=== PATIENT | female | born 1975 | race Caucasian/White ===

== ENCOUNTER → 2017-11-29 | Outpatient (CLI) | payer OTHER ==
[~2017-11-29] MED LIST: ALPR1TAB2 PO; CTLP20T; FLUO20CA42 PO; HYDR-3063 PO; IBUP-1780 PO; MTC10T; NORT50CA PO; OMEP20CA12 PO; ORPH100T PO; PRD20T PO; PRILOSEC OTC
--- NOTE | 2017-11-29 13:54 | Diagnostic Imaging Report ---
PROCEDURE: US Thyroid. TECHNIQUE: Multiple real-time grayscale images were obtained of the thyroid in various projections. INDICATION: Enlarged thyroid. COMPARISON: There are no prior studies available for comparison. FINDINGS: The thyroid gland is not enlarged. The right lobe measures 4.6 x 1.3 x 1.7 cm while the left lobe is estimated to be 4.5 x 1.3 x 1.7 cm (normal gland size 4-5 x 2 x 2 cm or less). Each lobe of the thyroid has a fairly homogeneous texture. There is no discrete solid or cystic mass identified. IMPRESSION: 1. The thyroid gland is not enlarged, and there is no focal solid or cystic mass involving either lobe. 2. If clinical concern regarding an underlying abnormality of the thyroid persists and further imaging is desired, then a nuclear medicine thyroid scan would be recommended. Dictated by: Dictated on workstation # [id number]
== END ==
LOC: RAD 11:01
PROVIDERS: ATTEND Family Medicine
DX: E04.9 Nontoxic goiter, unspecified (principal)
CPT/HCPCS: 76536

== ENCOUNTER → 2018-02-09 | Outpatient (CLI) | payer OTHER ==
--- NOTE | 2018-02-09 09:31 | Diagnostic Imaging Report ---
PROCEDURE: MR imaging cervical spine without contrast. TECHNIQUE: Multiplanar, multisequence MR imaging of the cervical spine was performed without contrast. INDICATION: Chronic neck pain and right shoulder pain radiating to the clavicle. COMPARISON: No prior studies are available for comparison. FINDINGS: Curvature of the cervical spine is within normal limits. Minimal anterolisthesis of C4 on C5 is seen. Minimal retrolisthesis of C5 on C6 is noted. Vertebral body marrow signal intensity is unremarkable. No geographic marrow lesion is seen. There is multilevel degenerative disc disease, greatest at C5-C6 and C6-C7 levels, with disc space narrowing and desiccation. Cervical cord demonstrates normal homogeneous signal intensity and normal morphology. C2-C3: No central canal or neuroforaminal stenosis is identified. C3-C4: Unremarkable. C4-C5: Unremarkable. C5-C6: There is broad-based disc/osteophyte complex and slight midline disc bulge indenting the ventral thecal sac. However, no resultant central canal or neuroforaminal stenosis is identified. C6-C7: Endplate osteophytes and uncovertebral joint degenerative changes noted. No central canal stenosis is seen. No significant neuroforaminal stenosis is seen. C7-T1: Unremarkable. Paraspinous tissues are unremarkable. IMPRESSION: Lower cervical spondylosis, as described, greatest at C5-C6 and C6-C7 levels. However, no significant central canal or neuroforaminal stenosis is identified. Dictated by: Dictated on workstation # [id number]
== END ==
LOC: RAD 08:27
PROVIDERS: ATTEND Family Medicine
DX: M50.322 Other cervical disc degeneration at C5-C6 level (principal); M47.812 Spondylosis without myelopathy or radiculopathy, cervical region
CPT/HCPCS: 72141

== ENCOUNTER → 2018-04-04 | Outpatient (CLI) | payer OTHER ==
--- NOTE | 2018-04-04 12:57 | Diagnostic Imaging Report ---
PROCEDURE: MR imaging of the brain without contrast. TECHNIQUE: Multiplanar, multisequence MR imaging of the brain was performed without contrast. INDICATION: Seizure disorder with confusion and disorientation. FINDINGS: Ventricles and sulci are within normal limits for size. Cervantes and white matter signal intensities are unremarkable. There is no evidence of cortical thickening or heterotopia. No intracranial hemorrhage is identified. There is no restricted diffusion to indicate infarction. The visualized paranasal sinuses are clear; however, fluid is present within the right mastoid air cells. IMPRESSION: Unremarkable MRI of the brain. Note is made of fluid within right mastoid air cells, and clinical correlation would be useful. Dictated by: Dictated on workstation # [id number]
== END ==
LOC: RAD 11:37
PROVIDERS: ATTEND Family Medicine
DX: R56.9 Unspecified convulsions (principal); R41.0 Disorientation, unspecified
CPT/HCPCS: 70551

== ENCOUNTER 2019-12-22 08:00 | Outpatient (RCR) | payer OTHER ==
[2019-12-20 10:23] VITALS: BP 109/77
[2019-12-20 11:14] LABS: BILIRUBIN,URINE NEGATIVE (NEGATIVE); CLARITY,URINE CLEAR; COLOR,URINE YELLOW; GLUCOSE, URINE (UA) NEGATIVE (NEGATIVE); KETONES,URINE NEGATIVE (NEGATIVE); LEUKOCYTE ESTERASE ,URINE NEGATIVE (NEGATIVE); NITRITE,URINE NEGATIVE (NEGATIVE); PH,URINE 5.5 (5-9); PROTEIN,URINE NEGATIVE (NEGATIVE)
[2019-12-20 11:21] LABS: BACTERIA,URINE NEGATIVE /HPF
[2019-12-20 11:22] LABS: BASOPHILS % (AUTO) 0 % (0-10); EOSINOPHILS % (AUTO) 0 % (0-10); HEMATOCRIT 36 % (35-52); HEMOGLOBIN 11.4 G/DL (11.5-16.0); LYMPHOCYTES # (AUTO) 1.2 X 10^3 (1.0-4.0); LYMPHOCYTES % (AUTO) 18 % (12-44); MEAN CORPUSCULAR HEMOGLOBIN 26 PG (25-34); MEAN CORPUSCULAR HGB CONC 32 G/DL (32-36); MEAN CORPUSCULAR VOLUME 84 FL (80-99); MEAN PLATELET VOLUME 8.2 FL (7.4-10.4); MONOCYTES # (AUTO) 0.5 X 10^3 (0.0-1.0); MONOCYTES % (AUTO) 8 % (0-12); NEUTROPHILS # (AUTO) 4.9 X 10^3 (1.8-7.8); NEUTROPHILS % (AUTO) 73 % (42-75); PLATELET COUNT 302 10^3/uL (130-400); RED CELL DISTRIBUTION WIDTH 21.4 % (10.0-14.5); WHITE BLOOD COUNT 6.6 10^3/uL (4.3-11.0)
[~2019-12-22] VITALS: Ht 170 cm; Wt 71.9 kg
[~2019-12-22 08:00] MED LIST changes: +ALPR1TAB7 PO; +CNC1KV IM; +FERR-84 PO; +FLUT15.845 NS; +FOLI0.8T PO; +GABA-486 PO; +HYDR-4342 PO; +LEVE500T99 PO; +LISI2.5T PO; +NORT75CA PO; -OMEP20CA12 PO; +OMEP20CA18 PO; +PANT40TA2 PO; +PROM25TA14 PO; +SCOP1PAT11 TD
== END 2019-12-22 14:22 | disposition home or self-care (01) ==
LOC: PREOP 08:00
PROVIDERS: ATTEND Obstetrics & Gynecology
DX: Z01.818 Encounter for other preprocedural examination (principal); Z01.812 Encounter for preprocedural laboratory examination; N92.0 Excessive and frequent menstruation with regular cycle; D64.9 Anemia, unspecified; K66.0 Peritoneal adhesions (postprocedural) (postinfection); Z11.59 Encounter for screening for other viral diseases; Z11.2 Encounter for screening for other bacterial diseases
CPT/HCPCS: 36415; 81000; 85025; 86850; 86900; 86901; 87081; 87635

== ENCOUNTER 2019-12-26 07:30 | Day surgery (SDC) | payer OTHER ==
[2019-12-26] VITALS (14 sets, daily range): BP systolic 119–148; BP diastolic 77–97
[~2019-12-26] VITALS: Ht 170 cm; Wt 71.9 kg
--- OUTSIDE RECORDS SUMMARY | 2019-12-26 07:37 | XMS REPORT | Continuity of Care Document ---
Demographics Preferred Language Unknown Marital Status Unknown Roman Catholic Affiliation Unknown Race Unknown Ethnic Group Unknown Author Organization Unknown Address Unknown Phone Unavailable Allergies Active Description Code Type Severity Reaction Onset Reported/Identified Relationship to Patient Clinical Status Yes NO KNOWN DRUG ALLERGIES UNKNOWN NO KNOWN DRUG ALLERG Yes NO KNOWN DRUG ALLERGIES UNKNOWN UNKNOWN Yes TAPE ADHESIVES MILD MILD Yes NKANo Known Allergies NKA Miscellaneous Allergy Unknown N/A 03/16/2006 Yes No Known Drug Allergies [id number] Drug Allergy Unknown N/A 12/20/2019 Medications Medication Packaging Start Date St op Date Route Dosage Sig FAMOTIDINE VIAL INJ 20 MG/2CC (PEPCID VIAL ) MG 01/02/2017 01/02/2017 ONCE&1929 ONDANSETRON VIAL INJ 4 MG/2CC (ZOFRAN 2CC VIAL) MG 01/02/2017 01/02/2017 PRN ONCE FENTANYL INJ 100 MCG/2CC VIAL MCG 01/02/2017 01/02/2017 ONCE&1929 LACTATED RINGERS 1000CC IV BAG INJ ml 01/02/2017 01/02/2017 ONCE&1929 FENTANYL INJ 100 MCG/2CC VIAL MCG 01/02/2017 01/02/2017 ONCE&2045 KETOROLAC VIAL INJ 30 MG/CC (TORADOL VIAL) MG 01/03/2017 01/03/2017 PRN ONCE FENTANYL INJ 100 MCG/2CC VIAL MCG 01/03/2017 01/03/2017 ONCE&0442 PROMETHAZINE VIAL INJ 25 MG/CC (PHENERGAN VIAL) MG 01/03/2017 01/03/2017 PRN ONCE DIPHENHYDRAMINE VIAL INJ 50 MG/CC (BENADRYL VIAL) MG 01/03/2017 01/03/2017 PRN ONCE NORMAL SALINE 500CC IV BAG I NJ 0.9 % (NS 500CC IV BAG) ml 01/03/2017 01/03/2017 ONCE&0447 NORMAL SALINE 1000CC IV BAG INJ 0.9 % (NS 1000CC IV BAG) ml 01/06/2017 01/06/2017 ONCE&1300 PROMETHAZINE VIAL INJ 25 MG/CC (PHENERGAN VIAL) MG 01/06/2017 01/06/2017 PRN ONCE NORMAL SALINE 1000CC IV BAG INJ 0.9 % (NS 1000CC IV BAG) ml 01/06/2017 01/06/2017 ONCE&1355 GI COCKTAIL SINGLE DOSE LIQ (GRASSHOPPER) ML 01/06/2017 01/06/2017 ONCE&1510 PROCHLORPERAZINE VIAL INJ 10 MG/2CC (COMPAZINE VIAL) MG 01/06/2017 01/06/2017 ONCE&1516 PROMETHAZINE VIAL INJ 25 MG/CC (PHENERGAN VIAL) MG 01/06/2017 01/06/2017 ONCE&1554 SCOPOLAMINE PATCH PAT 1.5 MG (TRANSDERM SC OP) MG 01/06/2017 01/06/2017 ONCE&1630 ONDANSETRON VIAL INJ 4 MG/2CC (ZOFRAN 2CC VIAL) MG 08/28/2018 08/28/2018 PRN ONCE NORMAL SALINE 1000CC IV BAG INJ 0.9 % (NS 1000CC IV BAG) ml 08/28/2018 08/28/2018 ONCE&1646 LORAZEPAM 1CC VIAL INJ 2 MG/CC (ATIVAN VIA L) MG 08/28/2018 08/28/2018 ONCE&1658 Hydromorphone inj 2mg/cc vial (Dilaudid) MG 08/28/2018 08/28/2018 PRN ONCE KETOROLAC VIAL INJ 30 MG/CC (TORADOL VIAL) MG 10/15/2018 10/15/2018 ONCE&1057 PROCHLORPERAZINE VIAL INJ 10 MG/2CC (COMPAZINE VIAL) MG 10/15/2018 10/15/2018 PRN ONCE NORMAL SALINE 1000CC IV BAG INJ 0.9 % (NS 1000CC IV BAG) ml 10/15/2018 10/15/2018 ONCE&1057 LORAZEPAM 1CC VIAL INJ 2 MG/CC (ATIVAN VIA L) MG 10/15/2018 10/15/2018 PRN ONCE HYDROCODONE/APAP 5MG/325MG T AB 5 MG/325MG (HERMINIA-TAB 5/325) TAB 10/15/2018 10/15/2018 PRN ONCE SUCRALFATE TAB 1 GM (CARAFATE) GM 10/15/2018 10/15/2018 ONCE&1221 GI COCKTAIL SINGLE DOSE LIQ (GRASSHOPPER) ML 10/15/2018 10/15/2018 ONCE&1221 ORPHENADRINE INJ 60 MG/2CC (NORFLEX) MG 10/15/2018 10/15/2018 ONCE&1335 LORAZEPAM 1CC VIAL INJ 2 MG/CC (ATIVAN VIA L) MG 10/15/2018 10/15/2018 PRN ONCE LORAZEPAM 1CC VIAL INJ 2 MG/CC (ATIVAN VIA L) MG 12/04/2018 12/04/2018 ONCE&1753 FAMOTIDINE VIAL INJ 20 MG/2CC (PEPCID VIAL ) MG 12/04/2018 12/04/2018 ONCE&1754 PROMETHAZINE VIAL INJ 25 MG/CC (PHENERGAN VIAL) MG 12/04/2018 12/04/2018 ONCE&1754 NORMAL SALINE 1000CC IV BAG INJ 0.9 % (NS 1000CC IV BAG) ml 12/04/2018 12/04/2018 ONCE&1754 PROMETHAZINE VIAL INJ 25 MG/CC (PHENERGAN VIAL) MG 12/04/2018 12/04/2018 PRN ONCE FENTANYL INJ 100 MCG/2CC VIAL MCG 12/04/2018 12/04/2018 ONCE&1842 GI COCKTAIL SINGLE DOSE LIQ (GRASSHOPPER) ML 01/16/2019 01/16/2019 ONCE&1407 NORMAL SALINE 1000CC IV BAG INJ 0.9 % (NS 1000CC IV BAG) ml 01/16/2019 01/16/2019 ONCE&1407 NORMAL SALINE 1000CC IV BAG INJ 0.9 % (NS 1000CC IV BAG) ml 01/16/2019 01/16/2019 ONCE&1438 FAMOTIDINE VIAL INJ 20 MG/2CC (PEPCID VIAL ) MG 03/23/2019 03/23/2019 ONCE&1944 LORAZEPAM 1CC VIAL INJ 2 MG/CC (ATIVAN VIA L) MG 03/23/2019 03/23/2019 ONCE&1944 FENTANYL INJ 100 MCG/2CC VIAL MCG 03/23/2019 03/23/2019 ONCE&1944 PROMETHAZINE VIAL INJ 25 MG/CC (PHENERGAN VIAL) MG 03/23/2019 03/23/2019 ONCE&1944 NORMAL SALINE 1000CC IV BAG INJ 0.9 % (NS 1000CC IV BAG) ml 03/23/2019 03/23/2019 ONCE&1944 FENTANYL INJ 100 MCG/2CC VIAL MCG 03/23/2019 03/23/2019 ONCE&2020 LORAZEPAM 1CC VIAL INJ 2 MG/CC (ATIVAN VIA L) MG 03/23/2019 03/30/2019 PRN Q4H LACTATED RINGERS 1000CC IV BAG INJ ml 04/17/2019 04/24/2019 CONTINUOUSEVERY 0 Hour PROMETHAZINE VIAL INJ 25 MG/CC (PHENERGAN VIAL) MG 04/17/2019 04/17/2019 PRN ONCE FENTANYL INJ 100 MCG/2CC VIAL MCG 04/17/2019 04/17/2019 PRN ONCE PROMETHAZINE VIAL INJ 25 MG/CC (PHENERGAN VIAL) MG 04/17/2019 04/17/2019 PRN ONCE LORAZEPAM 1CC VIAL INJ 2 MG/CC (ATIVAN VIA L) MG 04/17/2019 04/18/2019 PRN EVERY 0 Hour FENTANYL INJ 100 MCG/2CC VIAL MCG 04/17/2019 04/17/2019 ONCE&1407 FENTANYL INJ 100 MCG/2CC VIAL MCG 04/17/2019 04/18/2019 PRN EVERY 0 Hour HYDRALAZINE 1CC VIAL INJ 20 MG/CC (APRESOLINE 1CC VIAL) MG 04/17/2019 04/17/2019 PRN ONCE LORAZEPAM 1CC VIAL INJ 2 MG/CC (ATIVAN VIA L) MG 04/17/2019 04/17/2019 PRN ONCE METOCLOPRAMIDE VIAL INJ 10 M G/2CC (REGLAN 2CC VIAL) MG 04/17/2019 04/17/2019 PRN ONCE DEXAMETHASONE VIAL INJ 4 MG/CC (DECADRON V IAL) MG 04/17/2019 04/17/2019 ONCE&1605 ONDANSETRON VIAL INJ 4 MG/2CC (ZOFRAN 2CC VIAL) MG 04/17/2019 04/17/2019 PRN ONCE LORAZEPAM 1CC VIAL INJ 2 MG/CC (ATIVAN VIA L) MG 04/17/2019 04/18/2019 PRN EVERY 1 Hour FENTANYL INJ 100 MCG/2CC VIAL MCG 04/17/2019 04/18/2019 EVERY 1 Hour&0021,0121,0221,0321,0421,0521,0621,0721,0821,0921,1021,1121,1221,1321,1421, 1521,1721,1821,1921,2021,2121,2221,2321 PROMETHAZINE VIAL INJ 25 MG/CC (PHENERGAN VIAL) MG 04/17/2019 04/18/2019 PRN EVERY 1 Hour FENTANYL INJ 100 MCG/2CC VIAL MCG 04/17/2019 04/18/2019 Q2H&0000,0200,0400,0600,0800,1000,1200,1400,1600,2000,2200 LORAZEPAM 1CC VIAL INJ 2 MG/CC (ATIVAN VIA L) MG 05/12/2019 05/12/2019 ONCE&1559 PROMETHAZINE VIAL INJ 25 MG/CC (PHENERGAN VIAL) MG 05/12/2019 05/12/2019 ONCE&1559 NORMAL SALINE 1000CC IV BAG INJ 0.9 % (NS 1000CC IV BAG) ml 05/12/2019 05/12/2019 ONCE&1559 FAMOTIDINE VIAL INJ 20 MG/2CC (PEPCID VIAL ) MG 05/12/2019 05/12/2019 ONCE&1602 LORAZEPAM 1CC VIAL INJ 2 MG/CC (ATIVAN VIA L) MG 05/12/2019 05/12/2019 ONCE&1612 FENTANYL INJ 100 MCG/2CC VIAL MCG 05/12/2019 05/12/2019 ONCE&1612 ONDANSETRON VIAL INJ 4 MG/2CC (ZOFRAN 2CC VIAL) MG 05/12/2019 05/12/2019 ONCE&1830 FENTANYL INJ 100 MCG/2CC VIAL MCG 05/12/2019 05/12/2019 ONCE&1830 LORAZEPAM 1CC VIAL INJ 2 MG/CC (ATIVAN VIA L) MG 05/12/2019 05/12/2019 ONCE&1852 PROMETHAZINE VIAL INJ 25 MG/CC (PHENERGAN VIAL) MG 05/12/2019 05/12/2019 ONCE&1854 SUMATRIPTAN INJ INJ 6 MG/0.5CC (IMITREX IN J) MG 05/12/2019 05/12/2019 ONCE&2048 KETOROLAC VIAL INJ 30 MG/CC (TORADOL VIAL) MG 05/12/2019 05/12/2019 ONCE&2235 KETOROLAC VIAL INJ 30 MG/CC (TORADOL VIAL) MG 08/12/2019 08/12/2019 ONCE&1144 SUMATRIPTAN INJ INJ 6 MG/0.5CC (IMITREX IN J) MG 08/12/2019 08/12/2019 PRN ONCE LORAZEPAM 1CC VIAL INJ 2 MG/CC (ATIVAN VIA L) MG 08/12/2019 08/12/2019 ONCE&1144 PROMETHAZINE VIAL INJ 25 MG/CC (PHENERGAN VIAL) MG 08/12/2019 08/12/2019 ONCE&1144 DIPHENHYDRAMINE VIAL INJ 50 MG/CC (BENADRYL VIAL) MG 08/12/2019 08/12/2019 ONCE&1144 NORMAL SALINE 1000CC IV BAG INJ 0.9 % (NS 1000CC IV BAG) ml 08/12/2019 08/12/2019 ONCE&1144 PROMETHAZINE VIAL INJ 25 MG/CC (PHENERGAN VIAL) MG 08/12/2019 08/12/2019 ONCE&1225 FENTANYL INJ 100 MCG/2CC VIAL MCG 08/12/2019 08/12/2019 ONCE&1239 HYDROCODONE/APAP 7.5/325 TAB (HERMINIA-TAB 7.5/ 325) TAB 08/12/2019 08/12/2019 ONCE&1314 HALOPERIDOL VIAL INJ 5 MG/CC (HALDOL 1CC V IAL) MG 08/12/2019 08/12/2019 ONCE&1703 KETOROLAC VIAL INJ 30 MG/CC (TORADOL VIAL) MG 08/12/2019 08/12/2019 ONCE&1703 PROMETHAZINE SUPPOS SUP 25 M G (PHENERGAN SUPPOS) MG 08/12/2019 08/12/2019 ONCE&1919 FENTANYL INJ 100 MCG/2CC VIAL MCG 08/12/2019 08/12/2019 ONCE&1935 PROMETHAZINE VIAL INJ 25 MG/CC (PHENERGAN VIAL) MG 08/12/2019 08/12/2019 ONCE&1935 FENTANYL INJ 100 MCG/2CC VIAL MCG 08/12/2019 08/12/2019 ONCE&2247 DIPHENHYDRAMINE VIAL INJ 50 MG/CC (BENADRYL VIAL) MG 08/12/2019 08/12/2019 ONCE&2247 NORMAL SALINE 1000CC IV BAG INJ 0.9 % (NS 1000CC IV BAG) ml 08/12/2019 08/12/2019 ONCE&2247 FAMOTIDINE VIAL INJ 20 MG/2CC (PEPCID VIAL ) MG 08/12/2019 08/12/2019 ONCE&2251 NORMAL SALINE 1000CC IV BAG INJ 0.9 % (NS 1000CC IV BAG) ml 08/12/2019 08/19/2019 CONTINUOUSEVERY 0 Hour PROCHLORPERAZINE VIAL INJ 10 MG/2CC (COMPAZINE VIAL) MG 08/12/2019 08/19/2019 PRN Q6H FENTANYL INJ 100 MCG/2CC VIAL MCG 08/12/2019 08/15/2019 PRN Q2H HYDROCODONE/APAP 5MG/325MG T AB 5 MG/325MG (HERMINIA-TAB 5/325) TAB 08/12/2019 08/22/2019 PRN Q6H GABAPENTIN CAP 100 MG (NEURONTIN) Dose(s) 08/13/2019 08/19/2019 BID&0800,2000 LEVETIRACETAM TAB 500 MG (KEPPRA) Dose(s) 08/13/2019 08/19/2019 BID&0800,1999 FAMOTIDINE VIAL INJ 20 MG/2CC (PEPCID VIAL ) MG 08/13/2019 08/19/2019 BID&0800,2000 NORMAL SALINE 1000CC IV BAG INJ 0.9 % (NS 1000CC IV BAG) ml 08/13/2019 08/20/2019 CONTINUOUSEVERY 0 Hour LISINOPRIL TAB 5 MG (ZESTRIL) MG 08/13/2019 08/14/2019 BID&1630 ACETAMINOPHEN ORAL TABLET 325mg(Tylenol) MG 08/13/2019 09/12/2019 PRN Q6H HYDROCODONE/APAP 7.5/325 TAB (HERMINIA-TAB 7.5/ 325) Dose(s) 08/13/2019 08/23/2019 PRN BID ALPRAZOLAM TAB 1 MG (XANAX) Dose(s) 08/14/2019 08/24/2019 PRN QAM LISINOPRIL TAB 5 MG (ZESTRIL) MG 08/14/2019 08/14/2019 ONCE&0830 LORAZEPAM 1CC VIAL INJ 2 MG/CC (ATIVAN VIA L) MG 09/29/2019 09/29/2019 ONCE&1508 PROMETHAZINE VIAL INJ 25 MG/CC (PHENERGAN VIAL) MG 09/29/2019 09/29/2019 PRN ONCE NORMAL SALINE 1000CC IV BAG INJ 0.9 % (NS 1000CC IV BAG) ml 09/29/2019 09/29/2019 ONCE&1508 LORAZEPAM 1CC VIAL INJ 2 MG/CC (ATIVAN VIA L) MG 09/29/2019 09/29/2019 ONCE&1613 ENALAPRIL VIAL INJ 1.25 MG/CC (VASOTEC VIA L) MG 09/29/2019 09/29/2019 ONCE&1613 DIPHENHYDRAMINE VIAL INJ 50 MG/CC (BENADRYL VIAL) MG 09/29/2019 09/29/2019 ONCE&1635 NORMAL SALINE 500CC IV BAG I NJ 0.9 % (NS 500CC IV BAG) ml 09/29/2019 09/29/2019 ONCE&1745 NORMAL SALINE 1000CC IV BAG INJ 0.9 % (NS 1000CC IV BAG) ml 09/29/2019 10/14/2019 CONTINUOUSEVERY 0 Hour ONDANSETRON VIAL INJ 4 MG/2CC (ZOFRAN 2CC VIAL) MG 09/29/2019 09/29/2019 ONCE&1755 PROMETHAZINE VIAL INJ 25 MG/CC (PHENERGAN VIAL) MG 09/29/2019 09/29/2019 ONCE&1755 PANTOPRAZOLE VIAL INJ 40 MG (PROTONIX IV) MG 09/29/2019 10/09/2019 Q12H&0600,1800 ONDANSETRON VIAL INJ 4 MG/2CC (ZOFRAN 2CC VIAL) MG 09/29/2019 10/06/2019 PRN Q4H LORAZEPAM 1CC VIAL INJ 2 MG/CC (ATIVAN VIA L) MG 09/29/2019 10/06/2019 PRN Q2H PROMETHAZINE VIAL INJ 25 MG/CC (PHENERGAN VIAL) MG 09/29/2019 10/09/2019 PRN Q4H DIPHENHYDRAMINE VIAL INJ 50 MG/CC (BENADRYL VIAL) MG 09/29/2019 10/04/2019 PRN Q4H ENALAPRIL VIAL INJ 1.25 MG/CC (VASOTEC VIA L) MG 09/29/2019 09/29/2019 PRN ONCE GABAPENTIN CAP 100 MG (NEURONTIN) Dose(s) 09/29/2019 10/06/2019 BID&0800,2000 LEVETIRACETAM TAB 500 MG (KEPPRA) Dose(s) 09/29/2019 10/06/2019 BID&0800,2000 NORTRIPTYLINE CAP 25 MG (PAMELOR) Dose(s) 09/29/2019 10/05/2019 QHS&2100 KETOROLAC VIAL INJ 30 MG/CC (TORADOL VIAL) MG 09/30/2019 09/30/2019 PRN ONCE LISINOPRIL TAB 5 MG (ZESTRIL) Dose(s) 09/30/2019 10/06/2019 Daily&0900 LISINOPRIL TAB 10 MG (ZESTRIL) MG 09/30/2019 10/06/2019 Daily&0900 HYDROCODONE/APAP 7.5/325 TAB (HERMINIA-TAB 7.5/ 325) TAB 09/30/2019 10/10/2019 PRN BID ALPRAZOLAM TAB 1 MG (XANAX) MG 09/30/2019 10/10/2019 PRN BID ENOXAPARIN SYRINGE INJ 40 MG (LOVENOX SYRI NGE) MG 09/30/2019 10/09/2019 Daily&1999 Scopolamine TD patch 3 day ( TransDerm- Scop patch) Dose(s) 10/02/2019 10/02/2019 Q72H&0800 FAMOTIDINE VIAL INJ 20 MG/2CC (PEPCID VIAL ) MG 10/07/2019 10/07/2019 ONCE&191 LORAZEPAM 1CC VIAL INJ 2 MG/CC (ATIVAN VIA L) MG 10/07/2019 10/07/2019 ONCE&191 PROMETHAZINE VIAL INJ 25 MG/CC (PHENERGAN VIAL) MG 10/07/2019 10/07/2019 ONCE&1915 GABAPENTIN CAP 100 MG (NEURONTIN) MG 10/07/2019 11/06/2019 BID&0800,1999 LEVETIRACETAM TAB 500 MG (KEPPRA) MG 10/07/2019 11/06/2019 BID&0800,1999 ALPRAZOLAM TAB 1 MG (XANAX) MG 10/07/2019 11/06/2019 BID&0800,1999 PANTOPRAZOLE VIAL INJ 40 MG (PROTONIX IV) MG 10/07/2019 10/07/2019 ONCE&2019 [address] CL 40MEQ VIAL INJ 40 MEQ/20CC (KCL VIAL) MEQ 10/07/2019 10/07/2019 ONCE&2032 NORMAL SALINE 250CC IV BAG I NJ 0.9 % (NS 250CC IV BAG) ml 10/07/2019 10/07/2019 ONCE&2032 ENALAPRIL VIAL INJ 1.25 MG/CC (VASOTEC VIA L) MG 10/07/2019 10/07/2019 ONCE&2034 NORTRIPTYLINE CAP 25 MG (PAMELOR) MG 10/07/2019 11/05/2019 QHS&2100 DIPHENHYDRAMINE VIAL INJ 50 MG/CC (BENADRYL VIAL) MG 10/07/2019 10/07/2019 ONCE&2213 Normal Saline 1000cc W/KCl 20mEq ml 10/08/2019 10/15/2019 CONTINUOUSEVERY 0 Hour ORPHENADRINE INJ 60 MG/2CC (NORFLEX) MG 10/08/2019 10/08/2019 ONCE&0245 FENTANYL INJ 100 MCG/2CC VIAL MCG 10/08/2019 10/08/2019 ONCE&0245 SUCRALFATE TAB 1 GM (CARAFATE) GM 10/08/2019 10/14/2019 Q6H&0600,1200,1800,2359 ONDANSETRON VIAL INJ 4 MG/2CC (ZOFRAN 2CC VIAL) MG 10/08/2019 10/11/2019 PRN Q6H PROMETHAZINE VIAL INJ 25 MG/CC (PHENERGAN VIAL) MG 10/08/2019 10/18/2019 PRN Q6H GABAPENTIN CAP 100 MG (NEURONTIN) MG 10/08/2019 11/06/2019 BID&0800,1999 LEVETIRACETAM TAB 500 MG (KEPPRA) MG 10/08/2019 11/06/2019 BID&0800,1999 PANTOPRAZOLE VIAL INJ 40 MG (PROTONIX IV) MG 10/08/2019 10/17/2019 BID&0800,1999 ALPRAZOLAM TAB 1 MG (XANAX) MG 10/08/2019 11/06/2019 BID&0800,1999 LISINOPRIL TAB 10 MG (ZESTRIL) MG 10/08/2019 11/06/2019 Daily&0900 PANTOPRAZOLE VIAL INJ 40 MG (PROTONIX IV) MG 10/08/2019 10/17/2019 Q24H&0900 Scopolamine TD patch 3 day ( TransDerm- Scop patch) PATCH 10/09/2019 10/09/2019 Q72H&0800 PROMETHAZINE VIAL INJ 25 MG/CC (PHENERGAN VIAL) MG 11/16/2019 11/16/2019 PRN ONCE NORMAL SALINE 1000CC IV BAG INJ 0.9 % (NS 1000CC IV BAG) ml 11/16/2019 11/16/2019 ONCE&1646 FENTANYL INJ 100 MCG/2CC VIAL MCG 11/16/2019 11/16/2019 ONCE&1810 DIPHENHYDRAMINE VIAL INJ 50 MG/CC (BENADRYL VIAL) MG 11/16/2019 11/16/2019 ONCE&1810 FENTANYL INJ 100 MCG/2CC VIAL MCG 11/16/2019 11/16/2019 ONCE&1845 ORPHENADRINE INJ 60 MG/2CC (NORFLEX) MG 11/17/2019 11/17/2019 ONCE&1529 KETOROLAC VIAL INJ 60 MG/2CC (TORADOL VIAL ) MG 11/17/2019 11/17/2019 ONCE&1529 Problems Date Dx Coded Attending Type Code Diagnosis Diagnosed By 05/23/2006 Ot 575.8 05/23/2006 Ot 646.83 01/02/2017 Maureen Montaño 537.5 GASTROPTOSIS 01/02/2017 Maureen Montaño W 787.01 NAUSEA WITH VOMITING 01/02/2017 Maureen Montaño A K31.89 OTHER DISEASES OF STOMACH AND DUODENUM 01/02/2017 Maureen Montaño W R11.2 NAUSEA WITH VOMITING, UNSPECIFIED 01/03/2017 Maureen Montaño 537.5 GASTROPTOSIS 01/03/2017 Maureen Montaño W 668.81 OTHER COMPLICATIONS OF ANESTHESIA OR OTHER SEDATION IN LABOR AND DELIVERY, DELIVERED, WITH OR WITHOUT MENTION OF ANTEPARTUM CONDITION 01/03/2017 Maureen Montaño W 787.01 NAUSEA WITH VOMITING 01/03/2017 Maureen Montaño A K31.89 OTHER DISEASES OF STOMACH AND DUODENUM 01/03/2017 Maureen Montaño W R11.2 NAUSEA WITH VOMITING, UNSPECIFIED 01/03/2017 Maureen Montaño W R51 HEADACHE 01/06/2017 Mel Willis 537.5 GASTROPTOSIS 01/06/2017 Mel Willis W 787.01 NAUSEA WITH VOMITING 01/06/2017 Mel Willis A K31.89 OTHER DISEASES OF STOMACH AND DUODENUM 01/06/2017 Mel Willis W R11.2 NAUSEA WITH VOMITING, UNSPECIFIED 05/12/2017 W 292.0 DRUG WITHDRAWAL 05/12/2017 W 345.90 EPI LEPSY, UNSPECIFIED, WITHOUT MENTION OF INTRACTABLE EPILEPSY 05/12/2017 W 536.2 PERS ISTENT VOMITING 05/12/2017 W 724.5 BACK ACHE, UNSPECIFIED 05/12/2017 W G40.909 EP ILEPSY, UNSPECIFIED, NOT INTRACTABLE, WITHOUT STATUS EPILEPTICUS 05/12/2017 W G43.A0 CYC LICAL VOMITING, NOT INTRACTABLE 05/12/2017 W R52 PAIN, UNSPECIFIED 08/20/2017 W 300.00 ANX IETY STATE, UNSPECIFIED 08/20/2017 A 536.2 PERS ISTENT VOMITING 08/20/2017 W 715.90 OST EOARTHROSIS, UNSPECIFIED WHETHER GENERALIZED OR LOCALIZED, INVOLVING UNSPECIFIED SITE 08/20/2017 W F41.9 ANXI ETY DISORDER, UNSPECIFIED 08/20/2017 A G43.A0 CYC LICAL VOMITING, NOT INTRACTABLE 08/20/2017 W M19.90 UNS PECIFIED OSTEOARTHRITIS, UNSPECIFIED SITE 11/15/2017 AUDREY VALLADARES Ot M43.6 TORTICOLLIS 11/15/2017 AUDREY VALLADARES Ot M50.30 OTHER CERVICAL DISC DEGENERATION, UNSP C 11/15/2017 AUDREY VALLADARES Ot M54.2 CERVICALGIA 11/17/2017 AUDREY VALLADARES Ot M43.6 TORTICOLLIS 11/17/2017 AUDREY VALLADARES L Ot M50.30 OTHER CERVICAL DISC DEGENERATION, UNSP C 11/17/2017 AUDREY VALLADARES Ot M54.2 CERVICALGIA 11/17/2017 A 723.1 CERV ICALGIA 11/17/2017 A M54.2 CERV ICALGIA 11/30/2017 NAHOMI TAN MD Ot E04 .9 NONTOXIC GOITER, UNSPECIFIED 01/19/2018 NAHOMI TAN MD Ot E04 .9 NONTOXIC GOITER, UNSPECIFIED 01/19/2018 NAHOMI TAN MD Ot E04 .9 NONTOXIC GOITER, UNSPECIFIED 02/02/2018 W 300.00 ANX IETY STATE, UNSPECIFIED 02/02/2018 W 536.2 PERS ISTENT VOMITING 02/02/2018 A 723.1 CERV ICALGIA 02/02/2018 W F41.9 ANXI ETY DISORDER, UNSPECIFIED 02/02/2018 W G43.A0 CYC LICAL VOMITING, NOT INTRACTABLE 02/02/2018 A M54.2 CERV ICALGIA 02/09/2018 NAHOMI TAN MD, Ot E04 .9 NONTOXIC GOITER, UNSPECIFIED 02/10/2018 NAHOMI TAN MD Ot M47.812 SPONDYLOSIS W/O MYELOPATHY OR RADICULOPA 02/10/2018 NAHOMI TAN MD Ot M50.322 OTHER CERVICAL DISC DEGENERATION AT C5-C 03/31/2018 A 345.90 EPI LEPSY, UNSPECIFIED, WITHOUT MENTION OF INTRACTABLE EPILEPSY 03/31/2018 A G40.909 EP ILEPSY, UNSPECIFIED, NOT INTRACTABLE, WITHOUT STATUS EPILEPTICUS 04/05/2018 NAHOMI TAN MD, Ot R41 .0 DISORIENTATION, UNSPECIFIED 04/05/2018 NAHOMI TAN MD Ot R56 .9 UNSPECIFIED CONVULSIONS 04/22/2018 NAHOMI TAN MD, Ot M47.812 SPONDYLOSIS W/O MYELOPATHY OR RADICULOPA 04/22/2018 NAHOMI TAN MD Ot M50.322 OTHER CERVICAL DISC DEGENERATION AT C5-C 04/22/2018 NAHOMI TAN MD Ot R41 .0 DISORIENTATION, UNSPECIFIED 04/22/2018 NAHOMI TAN MD, Ot R56 .9 UNSPECIFIED CONVULSIONS 08/28/2018 Graciela Torres A W 536.2 PERSISTENT VOMITING 08/28/2018NovemberTorresGraciela eubanks W 537.5 GASTROPTOSIS 08/28/2018NovemberTorresLucía eubanksissa A W K31.89 OTHER DISEASES OF STOMACH AND DUODENUM 08/28/2018NovemberTorresLucía eubanksissa A W R11.10 VOMITING, UNSPECIFIED 10/15/2018 LEISURE, LYNIETA W 536.2 PERSISTENT VOMITING 10/15/2018 LEISURE, LYNIETA W G43.A0 CYCLICAL VOMITING, NOT INTRACTABLE 10/15/2018 LEISURE, LYNIETA W 536.2 PERSISTENT VOMITING 10/15/2018 LEISURE, LYNIETA W G43.A0 CYCLICAL VOMITING, NOT INTRACTABLE 12/04/2018 WHITNEY ARMSTRONG W 285.9 ANEMIA, UNSPECIFIED 12/04/2018 WHITNEY ARMSTRONG W 536.2 PERSISTENT VOMITING 12/04/2018 WHITNEY ARMSTRONG W 537.5 GASTROPTOSIS 12/04/2018 WHITNEY ARMSTRONG W D64.9 ANEMIA, UNSPECIFIED 12/04/2018 WHITNEY ARMSTRONG W K31.8 9 OTHER DISEASES OF STOMACH AND DUODENUM 12/04/2018 WHITNEY ARMSTRONG W R11.1 0 VOMITING, UNSPECIFIED 01/16/2019 Nahomi Tan W 787.02 NAUSEA ALONE 01/16/2019 Nahomi Tan W R11.0 NAUSEA 03/23/2019 MARIA E DRIER BELT CONVEYOR, STORMY W 536 .2 PERSISTENT VOMITING 03/23/2019 MARIA E DRIER BELT CONVEYOR, STORMY W G43 .A0 CYCLICAL VOMITING, NOT INTRACTABLE 03/23/2019 MARIA E DRIER BELT CONVEYOR, STORMY W 536 .2 PERSISTENT VOMITING 03/23/2019 MARIA E DRIER BELT CONVEYOR, MUSTAPHAY W G43 .A0 CYCLICAL VOMITING, NOT INTRACTABLE 03/23/2019 MARIA E DRIER BELT CONVEYOR, STORMY W 536 .2 PERSISTENT VOMITING 03/23/2019 MARIA E DRIER BELT CONVEYOR, STORMY W G43 .A0 CYCLICAL VOMITING, NOT INTRACTABLE 04/17/2019 Erik Bajwa W D64.9 ANEMIA, UNSPECIFIED 04/17/2019 Erik Bajwa W F41.9 ANXIETY DISORDER, UNSPECIFIED 04/17/2019 Erik Bajwa W G40.909 EPILEPSY, UNSP, NOT INTRACTABLE, WITHOUT STATUS EPILEPTICUS 04/17/2019 Erik Bajwa W G43.A0 CYCLICAL VOMITING, IN MIGRAINE, NOT INTRACTABLE 04/17/2019 Erik Bajwa W K31.89 OTHER DISEASES OF STOMACH AND DUODENUM 04/17/2019 Erik Bajwa K44.9 DIAP 04/17/2019 Erik Bajwa W M19.90 UNSPECIFIED OSTEOARTHRITIS, UNSPECIFIED SITE 04/17/2019 Erik Bajwa W M54.2 CERVICALGIA 04/17/2019 Erik Bajwa W R11.0 NAUSEA 04/17/2019 Erik Bajwa W R11.10 VOMITING, UNSPECIFIED 04/17/2019 Erik Bajwa W R11.2 NAUSEA WITH VOMITING, UNSPECIFIED 04/17/2019 Erik Bajwa W R51 HEADACHE 04/17/2019 Erik Bawja W R52 PAIN, UNSPECIFIED 05/12/2019 Tre Moeller W 346.20 VARIANTS OF MIGRAINE, NOT ELSEWHERE CLASSIFIED, WITHOUT MENTION OF INTRACTABLE MIGRAINE, WITHOUT MENTION OF STATUS MIGRAINOSUS 05/12/2019 Tre Moeller W 401.0 MALIGNANT ESSENTIAL HYPERTENSION 05/12/2019 Tre Moeller W I10 ESSENTIAL (PRIMARY) HYPERTENSION 05/12/2019 Tre Moeller W R11.15 CYCLICAL VOMITING SYNDROME UNRELATED TO MIGRAINE 05/16/2019 LEISURE, JIN W M25.55 1 PAIN IN RIGHT HIP 05/16/2019 LEISURE, JIN W M54.5 LOW BACK PAIN 05/16/2019 Dominick, Nahomi W M25.551 PAIN IN RIGHT HIP 05/16/2019 Dominick, Nahomi W M54.5 LOW BACK PAIN 05/16/2019 Dominick, Nahomi W M25.551 PAIN IN RIGHT HIP 05/16/2019 Dominick, Nahomi W M54.5 LOW BACK PAIN 05/16/2019 Dominick, Nahomi W M25.551 PAIN IN RIGHT HIP 05/16/2019 Dominick, Nahomi W M54.5 LOW BACK PAIN 05/16/2019 LEE ANN SANDERSON APRN W M25.551 PAIN IN RIGHT HIP 05/16/2019 LEE ANN SANDERSON APRN W M54 .5 LOW BACK PAIN 05/16/2019 Tre Moeller W M25.551 PAIN IN RIGHT HIP 05/16/2019 Tre Moeller W M54.5 LOW BACK PAIN 05/16/2019 Erik Bajwa W M25.551 PAIN IN RIGHT HIP 05/16/2019 Erik Bajwa W M54.5 LOW BACK PAIN 07/31/2019 LEISURE, JIN W M79.67 6 PAIN IN UNSPECIFIED TOE(S) 07/31/2019 Dominick, Nahomi W M79.676 PAIN IN UNSPECIFIED TOE(S) 07/31/2019 Dominick, Nahomi W M79.676 PAIN IN UNSPECIFIED TOE(S) 07/31/2019 Dominick, Nahomi W M79.676 PAIN IN UNSPECIFIED TOE(S) 07/31/2019 LEE ANN SANDERSON APRN W M79.676 PAIN IN UNSPECIFIED TOE(S) 07/31/2019 Tre Moeller W M79.676 PAIN IN UNSPECIFIED TOE(S) 08/12/2019 LEISURE, SHIKHANBA W 536.2 PERSISTENT VOMITING 08/12/2019 LEISURE, JIN W G43.A0 CYCLICAL VOMITING, NOT INTRACTABLE 08/12/2019 LEISURE, JIN W 536.2 PERSISTENT VOMITING 08/12/2019 LEISURE, JIN W G43.A0 CYCLICAL VOMITING, NOT INTRACTABLE 08/12/2019 LEISURE, SHIKHANBA W 536.2 PERSISTENT VOMITING 08/12/2019 LEISURE, JIN W D64.9 ANEMIA, UNSPECIFIED 08/12/2019 LEISURE, JIN W F41.9 ANXIETY DISORDER, UNSP 08/12/2019 LEISURE, ALEKSANDRBenedict W G40.90 9 EPILEPSY, UNSP, NOT INTRACTABLE, WITHOUT STATUS EPILEPTICUS 08/12/2019 LEISURE, JIN W G43.A0 CYCLICAL VOMITING, IN MIGRAINE, NOT INTRACTABLE 08/12/2019 LEISURE, SHIKHANBA W K31.89 OTHER DISEASES OF STOMACH AND DUODENUM 08/12/2019 LEISURE, JIN W M19.90 UNSPECIFIED OSTEOARTHRITIS, UNSPECIFIED SITE 08/12/2019 LEISURE, JIN W M54.2 CERVICALGIA 08/12/2019 LEISURE, JIN W R11.0 NAUSEA 08/12/2019 LEISURE, JIN W R11.10 VOMITING, UNSPECIFIED 08/12/2019 LEISURE, JIN W R11.15 CYCLICAL VOMITING SYNDROME UNRELATED TO MIGRAINE 08/12/2019 LEISURE, JIN W R11.2 NAUSEA WITH VOMITING, UNSPECIFIED 08/12/2019 LEISURE, JIN W R51 HEADACHE 08/12/2019 LEISURE, JIN W R52 PAIN, UNSPECIFIED 08/12/2019 Dominick, Nahomi W 536.2 PERSISTENT VOMITING 08/12/2019 Dominick, Nahomi W G43.A0 CYCLICAL VOMITING, NOT INTRACTABLE 08/12/2019 Dominick, Nahomi W 536.2 PERSISTENT VOMITING 08/12/2019 Dominick, Nahomi W G43.A0 CYCLICAL VOMITING, NOT INTRACTABLE 08/12/2019 Dominick, Nahomi W 536.2 PERSISTENT VOMITING 08/12/2019 Dominick, Nahomi W G43.A0 CYCLICAL VOMITING, NOT INTRACTABLE 08/14/2019 Dominick, Nahomi W 536.2 P 08/14/2019 Dominick, Nahomi W D64.9 ANEMIA, UNSPECIFIED 08/14/2019 Dominick, Nahomi F41.9 A 08/14/2019 Dominick, Nahomi W G40.909 EPILEPSY, UNSP, NOT INTRACTABLE, WITHOUT STATUS EPILEPTICUS 08/14/2019 Dominick, Nahomi W G43.A0 CYCLICAL VOMITING, IN MIGRAINE, NOT INTRACTABLE 08/14/2019 Dominick, Nahomi W G43.A1 CYCLICAL VOMITING, IN MIGRAINE, INTRACTABLE 08/14/2019 Dominick, Nahomi W K31.89 OTHER DISEASES OF STOMACH AND DUODENUM 08/14/2019 Dominick, Nahomi W M19.90 UNSPECIFIED OSTEOARTHRITIS, UNSPECIFIED SITE 08/14/2019 Dominick, Nahomi W M54.2 CERVICALGIA 08/14/2019 Dominick, Nahomi W R10.9 UNSPECIFIED ABDOMINAL PAIN 08/14/2019 Dominick, Nahomi W R11.10 VOMITING, UNSPECIFIED 08/14/2019 Dominick, Nahomi W R11.2 NAUSEA WITH VOMITING, UNSPECIFIED 08/14/2019 Dominick, Nahomi W R51 HEADACHE 08/14/2019 Dominick, Nahomi W R52 PAIN, UNSPECIFIED 09/29/2019 Dominick, Nahomi W 346.21 VARIANTS OF MIGRAINE, NOT ELSEWHERE CLASSIFIED, WITH INTRACTABLE MIGRAINE, SO STATED, WITHOUT MENTION OF STATUS MIGRAINOSUS 09/29/2019 Dominick, Nahomi W G43.A1 CYCLICAL VOMITING, INTRACTABLE 09/30/2019 [facility], Nahomi W 346.21 VARIANTS OF MIGRAINE, NOT ELSEWHERE CLASSIFIED, WITH INTRACTABLE 09/30/2019 Dominick, Nahomi W D64.9 ANEMIA, UNSPECIFIED 09/30/2019 Dominick, Nahomi F41.9 A 09/30/2019 Dominick, Nahomi W G40.909 EPILEPSY, UNSP, NOT INTRACTABLE, WITHOUT STATUS EPILEPTICUS 09/30/2019 Dominick, Nahmoi W G43.A0 CYCLICAL VOMITING, IN MIGRAINE, NOT INTRACTABLE 09/30/2019 Dominick, Nahomi W G43.A1 CYCLICAL VOMITING, INTRACTABLE 09/30/2019 Dominick, Nahomi W K31.89 OTHER DISEASES OF STOMACH AND DUODENUM 09/30/2019 Dominick, Nahomi W M19.90 UNSPECIFIED OSTEOARTHRITIS, UNSPECIFIED SITE 09/30/2019 Dominick, Nahomi W M54.2 CERVICALGIA 09/30/2019 Dominick, Nahomi W R10.9 UNSPECIFIED ABDOMINAL PAIN 09/30/2019 Dominick, Anhomi W R11.10 VOMITING, UNSPECIFIED 09/30/2019 Dominick, Nahomi W R11.15 CYCLICAL VOMITING SYNDROME UNRELATED TO MIGRAINE 09/30/2019 Dominick, Nahomi W R11.2 NAUSEA WITH VOMITING, UNSPECIFIED 09/30/2019 Dominick, Nahomi W R51 HEADACHE 09/30/2019 Dominick, Nahomi W R52 PAIN, UNSPECIFIED 10/05/2019 DOMINICK CARRION, NAHOMI Mcmullen Ot E04 .9 NONTOXIC GOITER, UNSPECIFIED 10/05/2019 DOMINICK CARRION, NAHOMI Mcmullen Ot M47.812 SPONDYLOSIS W/O MYELOPATHY OR RADICULOPA 10/05/2019 DOMINICK CARRION, NAHOMI Mcmullen Ot M50.322 OTHER CERVICAL DISC DEGENERATION AT C5-C 10/05/2019 DOMINICK CARRION, NAHOMI Mcmullen Ot R41 .0 DISORIENTATION, UNSPECIFIED 10/05/2019 DOMINICK , NAHOMI Mcmullen Ot R56 .9 UNSPECIFIED CONVULSIONS 10/09/2019 [facility], Nahomi W 276.8 HYPOPOTASSEMIA 10/09/2019 [facility], Nahomi W 789.00 ABDOMINAL PAIN, UNSPECIFIED SITE 10/09/2019 [facility], Nahomi W D64.9 ANEMIA, UNSPECIFIED 10/09/2019 [facility], Nahomi W G40.909 EPILEPSY, UNSP, NOT INTRACTABLE, WITHOUT STATUS EPILEPTICUS 10/09/2019 [facility], Nahomi W G43.A0 CYCLICAL VOMITING, IN MIGRAINE, NOT INTRACTABLE 10/09/2019 Dominick, Nahomi W G43.A1 CYCLICAL VOMITING, IN MIGRAINE, INTRACTABLE 10/09/2019 Dominick, Nahomi W K31.89 OTHER DISEASES OF STOMACH AND DUODENUM 10/09/2019 Dominick, Nahomi W M19.90 UNSPECIFIED OSTEOARTHRITIS, UNSPECIFIED SITE 10/09/2019 Dominick, Nahomi W M54.2 CERVICALGIA 10/09/2019 Dominick, Nahomi W R10.9 UNSPECIFIED ABDOMINAL PAIN 10/09/2019 Dominick, Nahomi W R11.10 VOMITING, UNSPECIFIED 10/09/2019 Dominick, Nahomi W R11.15 CYCLICAL VOMITING SYNDROME UNRELATED TO MIGRAINE 10/09/2019 Dominick, Nahomi W R11.2 NAUSEA WITH VOMITING, UNSPECIFIED 10/09/2019 Dominick, Nahomi W R51 HEADACHE 10/09/2019 Dominick, Nahomi W R52 PAIN, UNSPECIFIED 11/16/2019 [employer] [employer], STORMY W D64 .9 ANEMIA, UNSPECIFIED 11/16/2019 [employer], STORMY W G40.909 EPILEPSY, UNSP, NOT INTRACTABLE, WITHOUT STATUS EPILEP TICUS 11/16/2019 [employer], STORMY W G43 .A0 CYCLICAL VOMITING, IN MIGRAINE, NOT INTRACTABLE 11/16/2019 [employer]IA [employer], STORMY W G43 .A1 CYCLICAL VOMITING, IN MIGRAINE, INTRACTABLE 11/16/2019 [employer]IA [employer], STORMY W K31 .89 OTHER DISEASES OF STOMACH AND DUODENUM 11/16/2019 MARIA [employer], STORMY W M19 .90 UNSPECIFIED OSTEOARTHRITIS, UNSPECIFIED SITE 11/16/2019 [employer]IA [employer], STORMY W M54 .2 CERVICALGIA 11/16/2019 MARIA E [employer], STORMY W R10 .9 UNSPECIFIED ABDOMINAL PAIN 11/16/2019 MARIA [employer], STORMY W R11 .10 VOMITING, UNSPECIFIED 11/16/2019 [employer]IA [employer], STORMY W R11 .2 NAUSEA WITH VOMITING, UNSPECIFIED 11/16/2019 [employer], STORMY W R51 HEADACHE 11/16/2019 [employer]IA [employer], STORMY W R52 PAIN, UNSPECIFIED 11/17/2019 HowTre moulton W D64.9 ANEMIA, UNSPECIFIED 11/17/2019 Tre Moeller W G40.909 EPILEPSY, UNSP, NOT INTRACTABLE, WITHOUT STATUS EPILEPTICUS 11/17/2019 Tre Moeller W G43.A0 CYCLICAL VOMITING, IN MIGRAINE, NOT INTRACTABLE 11/17/2019 Tre Moeller W G43.A1 CYCLICAL VOMITING, IN MIGRAINE, INTRACTABLE 11/17/2019 Tre Moeller W K31.89 OTHER DISEASES OF STOMACH AND DUODENUM 11/17/2019 Tre Moeller W M19.90 UNSPECIFIED OSTEOARTHRITIS, UNSPECIFIED SITE 11/17/2019 Tre Moeller W M54.2 CERVICALGIA 11/17/2019 Tre Moeller W R10.9 UNSPECIFIED ABDOMINAL PAIN 11/17/2019 Tre Moeller W R11.10 VOMITING, UNSPECIFIED 11/17/2019 Tre Moeller W R11.2 NAUSEA WITH VOMITING, UNSPECIFIED 11/17/2019 Tre Moeller W R51 HEADACHE 11/17/2019 Tre Moeller W R52 PAIN, UNSPECIFIED 12/22/2019 MARTINEZ DO, ROBBY C Ot D64.9 ANEMIA, UNSPECIFIED 12/22/2019 MARTINEZ DO, ROBBY C Ot K66.0 PERITONEAL ADHESIONS (POSTPROCEDURAL) (P 12/22/2019 MARTINEZ DO, ROBBY C Ot N92.0 EXCESSIVE AND FREQUENT MENSTRUATION WITH 12/22/2019 MARTINEZ DO, ROBBY C Ot Z01.8 12 ENCOUNTER FOR PREPROCEDURAL LABORATORY E 12/22/2019 MARTINEZ DO, ROBBY C Ot Z01.8 18 ENCOUNTER FOR OTHER PREPROCEDURAL EXAMIN 12/22/2019 MARTINEZ DO ROBBY C Ot D64.9 ANEMIA, UNSPECIFIED 12/22/2019 MARTINEZ DO, ROBBY C Ot K66.0 PERITONEAL ADHESIONS (POSTPROCEDURAL) (P 12/22/2019 MARTINEZ DO, ROBBY C Ot N92.0 EXCESSIVE AND FREQUENT MENSTRUATION WITH 12/22/2019 MARTINEZ DO, ROBBY C Ot Z01.8 12 ENCOUNTER FOR PREPROCEDURAL LABORATORY E 12/22/2019 MARTINEZ DO, ROBBY C Ot Z01.8 18 ENCOUNTER FOR OTHER PREPROCEDURAL EXAMIN 12/25/2019 NAHOMI TAN MD Ot E04 .9 NONTOXIC GOITER, UNSPECIFIED 12/25/2019 NAHOMI TAN MD Ot M47.812 SPONDYLOSIS W/O MYELOPATHY OR RADICULOPA 12/25/2019 NAHOMI TAN MD Ot M50.322 OTHER CERVICAL DISC DEGENERATION AT C5-C 12/25/2019 NAHOMI TAN MD Ot R41 .0 DISORIENTATION, UNSPECIFIED 12/25/2019 NAHOMI TAN MD Ot R56 .9 UNSPECIFIED CONVULSIONS Procedures There is no data. Results Test Result Range Comprehensive Metabolic Panel - 01/02/17 19:50 Albumin 3.8 g/dL 3.6-5.1 ALP 89 U/L 35-130 ALT 25 U/L 6-45 Anion Gap 14 6-14 AST 24 U/L 2-40 BUN 11 mg/dL 5-25 Calcium 8.7 mg/dL 8.3-10.4 Chloride 106 mmol/L 95-114 CO2 22 mEq/L 22-33 Creat 0.68 mg/dL 0.50-1.50 eGFR 95 mL/min/1.73m2 >59 Globulin 3.7 g/dL 2.3-3.5 Glucose 142 mg/dL 70-110 Osmo 287 280-295 Potassium 3.9 mmol/L 3.5-5.3 Sodium 138 mmol/L 134-148 TBil 0.3 mg/dL 0.2-1.2 TP 7.5 g/dL 6.0-8.3 Urinalysis - 01/02/17 22:00 Icotest N/A Negative Urine Crystals Amorphous material: few/HPF Urine Volume Urine Volume Sufficient (10mL) Urine Yeast No Yeast present Urine-Appearance Slightly Cloudy Clear Urine-Bacteria Trace Urine-Bilirubin Negative Negative Urine-Blood Trace-lysed Negative Urine-Color Yellow Colorless-[place] ow Urine-Epithelial Cells 5-10/HPF Urine-Glucose Negative Negative Urine-Ketones 1+ Negative Urine-Leukocytes Negative Negative Urine-Mucus 3+ Urine-Nitrite Negative Negative Urine-Other Urine Saved if Culture Need ed (48hrs from time of collection) Urine-pH 5.5 5-8.5 Urine-Protein 1+ Negative Urine-RBC 0-2/HPF Urine-Specific [place] >=1.030 1.000-1 .030 Urine-WBC 0-2/HPF Urobilinogen 0.2 0.2-1.0 BMP - 01/03/17 04:40 Anion Gap 14 6-14 BUN 10 mg/dL 5-25 Calcium 8.6 mg/dL 8.3-10.4 Chloride 104 mmol/L 95-114 CO2 23 mEq/L 22-33 Creat 0.66 mg/dL 0.50-1.50 eGFR 99 mL/min/1.73m2 >59 Glucose 126 mg/dL 70-110 Osmo 284 280-295 Potassium 3.7 mmol/L 3.5-5.3 Sodium 137 mmol/L 134-148 Urinalysis - 01/06/17 13:00 Icotest N/A Negative Urine Volume Urine Volume Sufficient (10mL) Urine Yeast No Yeast present Urine-Appearance Clear Clear Urine-Bacteria Trace Urine-Bilirubin Negative Negative Urine-Blood 3+ Negative Urine-Color Yellow Colorless-[place] ow Urine-Epithelial Cells 5-10/HPF Urine-Glucose Negative Negative Urine-Ketones 3+ Negative Urine-Leukocytes Negative Negative Urine-Mucus 1+ Urine-Nitrite Negative Negative Urine-Other Urine Saved if Culture Need ed (48hrs from time of collection) Urine-pH 6.0 5-8.5 Urine-Protein 1+ Negative Urine-RBC Negative Urine-Specific [place] 1.025 1.000-1 .030 Urine-WBC Nothing Seen on Microscopic Urobilinogen 0.2 E.U./dL 0.2-1.0 Amylase - 01/06/17 13:15 Amylase 40 U/L 20-100 Lipase - 01/06/17 13:15 Lipase 15 U/L 7-59 Thyroid Stimulating Hormone - 03/31/18 1 2:27 TSH 1.03 mIU/mL 0.32-5.00 Comprehensive Metabolic Panel - 08/28/18 16:46 Albumin 4.1 g/dL 3.6-5.1 ALP 107 U/L 35-130 ALT 17 U/L 6-45 Anion Gap 16 6-14 AST 24 U/L 2-40 BUN 7 mg/dL 5-25 Calcium 9.3 mg/dL 8.3-10.4 Chloride 103 mmol/L 95-114 CO2 20 mEq/L 22-33 Creat 0.66 mg/dL 0.50-1.50 eGFR 98 mL/min/1.73m2 >59 Globulin 4.3 g/dL 2.3-3.5 Glucose 124 mg/dL 70-110 Osmo 279 280-295 Potassium 3.8 mmol/L 3.5-5.3 Sodium 135 mmol/L 134-148 TBil 0.4 mg/dL 0.2-1.2 TP 8.4 g/dL 6.0-8.3 Rubella Antibodies, IgG - 08/29/19 12:00 Rubella Antibodies, IgG 5.18 index Immun e >0.99 Iron - 08/30/18 12:26 Iron 32 ug/dL 70-200 JOANN w/Reflex - 08/30/18 12:26 JOANN DIRECT NEGATIVE NEGATIVE Comprehensive Metabolic Panel - 10/15/18 10:57 Albumin 3.9 g/dL 3.6-5.1 ALP 97 U/L 35-130 ALT 17 U/L 6-45 Anion Gap 14 6-14 AST 24 U/L 2-40 BUN 8 mg/dL 5-25 Calcium 8.8 mg/dL 8.3-10.4 Chloride 104 mmol/L 95-114 CO2 22 mEq/L 22-33 Creat 0.65 mg/dL 0.50-1.50 eGFR 99 mL/min/1.73m2 >59 Globulin 3.9 g/dL 2.3-3.5 Glucose 127 mg/dL 70-110 Osmo 281 280-295 Potassium 3.8 mmol/L 3.5-5.3 Sodium 136 mmol/L 134-148 TBil 0.3 mg/dL 0.2-1.2 TP 7.8 g/dL 6.0-8.3 Rapid Drug Screen,Medical - 10/15/18 10: 57 Amphetamine 0.00 NEGATIVE NEGATIVE Barbiturates NEGATIVE NEGATIVE Benzodiazepines POSITIVE NEGATIVE Cocaine NEGATIVE NEGATIVE Marijuana POSITIVE NEGATIVE Methylenedioxymethamphetamine NEGATIVE NEGATIVE Opiates POSITIVE NEGATIVE Oxycodone NEGATIVE NEGATIVE Phencyclidine NEGATIVE NEGATIVE Propoxyphene NEGATIVE NEGATIVE Tricyclic Antidepressant POSITIVE NEGAT PHOEBE Urinalysis - 10/15/18 13:00 Icotest N/A Negative Urine Volume Urine Volume Sufficient (10mL) Urine Yeast No Yeast present Urine-Appearance Clear Clear Urine-Bacteria Trace Urine-Bilirubin Negative Negative Urine-Blood 3+ Negative Urine-Color Yellow Colorless-[place] ow Urine-Epithelial Cells 0-5/HPF Urine-Glucose Negative Negative Urine-Ketones Negative Negative Urine-Leukocytes Negative Negative Urine-Nitrite Negative Negative Urine-Other Urine Saved if Culture Need ed (48hrs from time of collection) Urine-pH 6.5 5-8.5 Urine-Protein 1+ Negative Urine-RBC TNTC Urine-Specific [place] 1.025 1.000-1 .030 Urine-WBC Negative Urobilinogen 0.2 E.U./dL 0.2-1.0 Sed Rate - 10/18/18 10:54 Sed Rate 28 mm/hr 9-15 Hepatitis Panel (4) - 10/20/18 14:18 HBsAg Screen Negative Negative Hep A Ab, IgM Negative Negative Hep B Core Ab, IgM Negative Negative Hep C Virus Ab <0.1 s/co ratio 0.0-0.9 Comprehensive Metabolic Panel - 10/20/18 14:18 Albumin 4.2 g/dL 3.6-5.1 ALP 82 U/L 35-130 ALT 24 U/L 6-45 Anion Gap 17 6-14 AST 31 U/L 2-40 BUN 8 mg/dL 5-25 Calcium 9.3 mg/dL 8.3-10.4 Chloride 100 mmol/L 95-114 CO2 23 mEq/L 22-33 Creat 0.79 mg/dL 0.50-1.50 eGFR 79 mL/min/1.73m2 >59 Globulin 3.5 g/dL 2.3-3.5 Glucose 88 mg/dL 70-110 Osmo 279 280-295 Potassium 3.7 mmol/L 3.5-5.3 Sodium 136 mmol/L 134-148 TBil 0.2 mg/dL 0.2-1.2 TP 7.7 g/dL 6.0-8.3 Hepatitis Panel, Acute - 10/20/18 14:18 Hep A Ab, IgM NEGATIVE NEGATIVE HBsAg Screen NEGATIVE NEGATIVE Hep B Core Ab, IgM NEGATIVE NEGATIVE Hep C Virus Ab <0.1 S/CO RATIO 0.0-0.9 Comprehensive Metabolic Panel - 12/04/18 18:05 Albumin 4.0 g/dL 3.6-5.1 ALP 91 U/L 35-130 ALT 12 U/L 6-45 Anion Gap 14 6-14 AST 17 U/L 2-40 BUN 7 mg/dL 5-25 Calcium 9.4 mg/dL 8.3-10.4 Chloride 106 mmol/L 95-114 CO2 21 mEq/L 22-33 Creat 0.66 mg/dL 0.50-1.50 eGFR 98 mL/min/1.73m2 >59 Globulin 4.0 g/dL 2.3-3.5 Glucose 125 mg/dL 70-110 Osmo 283 280-295 Potassium 3.5 mmol/L 3.5-5.3 Sodium 137 mmol/L 134-148 TBil 0.3 mg/dL 0.2-1.2 TP 8.0 g/dL 6.0-8.3 Comprehensive Metabolic Panel - 03/23/19 19:55 Albumin 4.1 g/dL 3.6-5.1 ALP 107 U/L 35-130 ALT 11 U/L 6-45 Anion Gap 16 6-14 AST 18 U/L 2-40 BUN 4 mg/dL 5-25 Calcium 9.1 mg/dL 8.3-10.4 Chloride 100 mmol/L 95-114 CO2 23 mEq/L 22-33 Creat 0.64 mg/dL 0.50-1.50 eGFR 101 mL/min/1.73m2 >59 Globulin 3.9 g/dL 2.3-3.5 Glucose 127 mg/dL 70-110 Osmo 280 280-295 Potassium 3.4 mmol/L 3.5-5.3 Sodium 136 mmol/L 134-148 TBil 0.3 mg/dL 0.2-1.2 TP 8.0 g/dL 6.0-8.3 Test-Serum - 04/17/19 10:03 Preg Test-S Negative Negative Surgical Pathology - 04/17/19 11:18 Surg Path Sent to [facility] Pathology Thyroid Stimulating Hormone - 05/12/19 1 6:12 TSH 0.79 mIU/mL 0.32-5.00 Comprehensive Metabolic Panel - 08/12/19 17:34 Albumin 4.2 g/dL 3.6-5.1 ALP 108 U/L 35-130 ALT 12 U/L 6-45 Anion Gap 18 6-14 AST 17 U/L 2-40 BUN 6 mg/dL 5-25 Calcium 9.2 mg/dL 8.3-10.4 Chloride 102 mmol/L 95-114 CO2 21 mEq/L 22-33 Creat 0.67 mg/dL 0.50-1.50 eGFR 96 mL/min/1.73m2 >59 Globulin 4.5 g/dL 2.3-3.5 Glucose 106 mg/dL 70-110 Osmo 281 280-295 Potassium 3.5 mmol/L 3.5-5.3 Sodium 137 mmol/L 134-148 TBil 0.4 mg/dL 0.2-1.2 TP 8.7 g/dL 6.0-8.3 Lipase - 08/12/19 17:34 Lipase 15 U/L 7-59 Comprehensive Metabolic Panel - 08/13/19 07:00 Albumin 4.0 g/dL 3.6-5.1 ALP 99 U/L 35-130 ALT 11 U/L 6-45 Anion Gap 16 6-14 AST 17 U/L 2-40 BUN 6 mg/dL 5-25 Calcium 8.8 mg/dL 8.3-10.4 Chloride 101 mmol/L 95-114 CO2 20 mEq/L 22-33 Creat 0.63 mg/dL 0.50-1.50 eGFR 103 mL/min/1.73m2 >59 Globulin 4.1 g/dL 2.3-3.5 Glucose 97 mg/dL 70-110 Osmo 273 280-295 Potassium 3.6 mmol/L 3.5-5.3 Sodium 133 mmol/L 134-148 TBil 0.4 mg/dL 0.2-1.2 TP 8.1 g/dL 6.0-8.3 Rapid Drug Screen + ETOH,Medical - 08/13 12:58 Amphetamine NEGATIVE NEGATIVE Barbiturates NEGATIVE NEGATIVE Benzodiazepines POSITIVE NEGATIVE Cocaine NEGATIVE NEGATIVE Ethanol, Urine <10.00 mg/dL 20.00-80.00 Marijuana POSITIVE NEGATIVE Methylenedioxymethamphetamine NEGATIVE NEGATIVE Opiates POSITIVE NEGATIVE Oxycodone NEGATIVE NEGATIVE Phencyclidine NEGATIVE NEGATIVE Propoxyphene NEGATIVE NEGATIVE Tricyclic Antidepressant POSITIVE NEGAT PHOEBE Comprehensive Metabolic Panel - 08/14/19 06:47 Albumin 4.0 g/dL 3.6-5.1 ALP 90 U/L 35-130 ALT 12 U/L 6-45 Anion Gap 13 6-14 AST 17 U/L 2-40 BUN 5 mg/dL 5-25 Calcium 8.9 mg/dL 8.3-10.4 Chloride 102 mmol/L 95-114 CO2 24 mEq/L 22-33 Creat 0.66 mg/dL 0.50-1.50 eGFR 97 mL/min/1.73m2 >59 Globulin 3.9 g/dL 2.3-3.5 Glucose 115 mg/dL 70-110 Osmo 279 280-295 Potassium 3.3 mmol/L 3.5-5.3 Sodium 136 mmol/L 134-148 TBil 0.3 mg/dL 0.2-1.2 TP 7.9 g/dL 6.0-8.3 Lipase - 08/14/19 06:47 Lipase 69 U/L 7-59 Creatine Kinase - 09/29/19 15:08 CK 69 U/L 26-174 BMP - 09/30/19 05:49 Anion Gap 16 6-14 BUN 4 mg/dL 5-25 Calcium 8.6 mg/dL 8.3-10.4 Chloride 100 mmol/L 95-114 CO2 22 mEq/L 22-33 Creat 0.62 mg/dL 0.50-1.50 eGFR 105 mL/min/1.73m2 >59 Glucose 100 mg/dL 70-110 Osmo 276 280-295 Potassium 3.3 mmol/L 3.5-5.3 Sodium 135 mmol/L 134-148 Folate - 10/01/19 13:17 Folate 6.80 ng/mL 7.00-31.40 Test-Urine - 10/07/19 19:45 Preg Test-U Negative Negative Lipase - 10/07/19 19:50 Lipase 33 U/L 7-59 Comprehensive Metabolic Panel - 10/07/19 19:50 Albumin 4.1 g/dL 3.6-5.1 ALP 92 U/L 35-130 ALT 6 U/L 6-45 Anion Gap 13 6-14 AST 13 U/L 2-40 BUN 8 mg/dL 5-25 Calcium 9.4 mg/dL 8.3-10.4 Chloride 97 mmol/L 95-114 CO2 30 mEq/L 22-33 Creat 0.67 mg/dL 0.50-1.50 eGFR 96 mL/min/1.73m2 >59 Globulin 3.9 g/dL 2.3-3.5 Glucose 122 mg/dL 70-110 Osmo 283 280-295 Potassium 2.8 mmol/L 3.5-5.3 Sodium 137 mmol/L 134-148 TBil 0.2 mg/dL 0.2-1.2 TP 8.0 g/dL 6.0-8.3 EKG - 10/07/19 21:39 EKG Complete IFOBT Occult Blood - 10/08/19 00:02 IFOBT Occult Blood POSITIVE Negative BMP - 10/08/19 05:35 Anion Gap 13 6-14 BUN 6 mg/dL 5-25 Calcium 8.5 mg/dL 8.3-10.4 Chloride 102 mmol/L 95-114 CO2 27 mEq/L 22-33 Creat 0.54 mg/dL 0.50-1.50 eGFR 123 mL/min/1.73m2 >59 Glucose 83 mg/dL 70-110 Osmo 284 280-295 Potassium 3.2 mmol/L 3.5-5.3 Sodium 139 mmol/L 134-148 Surgical Pathology - 10/09/19 11:45 Surg Path Sent to [facility] Pathology - 10/11/19 08:59 Hct 27.3 % 36.0-46.0 Hgb 8.1 g/dL 13.0-15.0 Lipase - 11/16/19 16:19 Lipase 25 U/L 7-59 Urinalysis - 11/16/19 16:20 Icotest N/A Negative Urine Volume Urine Volume Sufficient (10mL) Urine-Appearance Clear Clear Urine-Bacteria Trace Urine-Bilirubin Negative Negative Urine-Blood Trace-lysed Negative Urine-Color Yellow Colorless-Lt[place] ow Urine-Epithelial Cells 0-5/HPF Urine-Glucose Negative Negative Urine-Ketones Negative Negative Urine-Leukocytes Negative Negative Urine-Mucus 1+ Urine-Nitrite Negative Negative Urine-Other Urine Saved if Culture Need ed (48hrs from time of collection) Urine-pH 6.5 5-8.5 Urine-Protein Negative Negative Urine-RBC Negative Urine-Specific [place] 1.020 1.000-1 .030 Urine-WBC Negative Urobilinogen 0.2 E.U./dL 0.2-1.0 VIT B-12 - 11/30/19 15:06 Vitamin B12 250.00 pg/mL 213.00-816.00 Methicillin resistant Staphylococcus aur eus (MRSA) screening culture - 12/20/19 10:40 Methicillin resistant Staphylococcus aureus (MRSA) scr eening culture NEG NRG Complete urinalysis with reflex to cultu re - 12/20/19 10:45 Urine color determination YELLOW NRG Urine clarity determination CLEAR NR G Urine pH measurement by test strip 5.5 5-9 Specific gravity of urine by test strip <= 1.016-1.022 Urine protein assay by test strip, semi-quantitative NEGATIVE NEGATIVE Urine glucose detection by automated test strip NE GATIVE NEGATIVE Erythrocytes detection in urine sediment by light micr oscopy NEGATIVE NEGATIVE Urine ketones detection by automated test strip NE GATIVE NEGATIVE Urine nitrite detection by test strip NEGATIVE NEGATIVE Urine total bilirubin detection by test strip NEGA TIVE NEGATIVE Urine urobilinogen measurement by automated test strip (mass/volume) 0.2 mg/dL < = 1.0 Urine leukocyte esterase detection by dipstick NEG ATIVE NEGATIVE Automated urine sediment erythrocyte cou nt by microscopy (number/high power field) NONE NRG Automated urine sediment leukocyte count by microscopy (number/high power field) NONE NRG Bacteria detection in urine sediment by light microsco py NEGATIVE NRG Squamous epithelial cells detection in u rine sediment by light microscopy 2-5 NRG Crystals detection in urine sediment by light microsco py NONE NRG Casts detection in urine sediment by light microscopy NONE NRG Mucus detection in urine sediment by light microscopy NEGATIVE NRG Complete urinalysis with reflex to culture NO NRG Complete blood count (CBC) with automate d white blood cell (WBC) differential - 12/20/19 11:14 Blood leukocytes automated count (number/volume) 6.6 10*3/uL 4.3-11.0 Blood erythrocytes automated count (number/volume) 4.32 10*6/uL 4.35-5.85 Venous blood hemoglobin measurement (mass/volume) 11.4 g/dL 11.5-16.0 Blood hematocrit (volume fraction) 36 % 35-52 Automated erythrocyte mean corpuscular volume 84 [ foz_us] 80-99 Automated erythrocyte mean corpuscular h emoglobin (mass per erythrocyte) 26 pg 25-34 Automated erythrocyte mean corpuscular h emoglobin concentration measurement (mass/volume) 32 g/dL 32-36 Automated erythrocyte distribution width ratio 21. 4 % 10.0- 14.5 Automated blood platelet count (count/volume) 302 10*3/uL 130-400 Automated blood platelet mean volume measurement 8.2 [foz_us] 7.4-10.4 Automated blood neutrophils/100 leukocytes 73 % 42-75 Automated blood lymphocytes/100 leukocytes 18 % 12-44 Blood monocytes/100 leukocytes 8 % 0-12 Automated blood eosinophils/100 leukocytes 0 % 0-10 Automated blood basophils/100 leukocytes 0 % 0-10 Blood neutrophils automated count (number/volume) 4.9 10*3 1.8-7.8 Blood lymphocytes automated count (number/volume) 1.2 10*3 1.0-4.0 Blood monocytes automated count (number/volume) 0. 5 10*3 0.0-1.0 Automated eosinophil count 0.0 10*3/uL 0 .0-0.3 Automated blood basophil count (count/volume) 0.0 10*3/uL 0.0-0.1 Blood type T Indirect antibody screen pa danni - 12/20/19 11:14 WRISTBAND NUMBER TNP NRG ABO+Rh group OP NRG Blood group antibody screen NEGATIVE NR G Coronavirus SARS-CoV-2 SO 2018 0 13:00 Coronavirus Ab [Units/volume] in Serum Negative Negative Encounters ACCT No. Visit Date/Time Discharge Status Pt. Type Provider Facility Loc./Unit Complaint [id number] 08/31/2019 17:06:00 Document Registration [id number] 09/01/2018 11:24:00 Document Registration [id number] 10/21/2018 01:07:00 Document Registration [id number] 12/22/2019 08:00:00 020 14:22:00 DIS Outpatient ROBBY MARTINEZ DO [facility] PREOP TOTAL ABDOMINAL HYST WI TH DAVINCI [id number] 04/04/2018 11:37:00 018 23:59:59 CLS Outpatient NAHOMI TAN MD [facility] RAD SEIZURE [id number] 02/09/2018 08:27:00 018 23:59:59 CLS Outpatient NAHOMI TAN MD [facility] RAD NECK PAIN,NUMBNESS IN A EDWARD [id number] 11/29/2017 11:01:00 018 23:59:59 CLS Outpatient NAHOMI TAN MD [facility] RAD ENLARGED THYROID [id number] 11/15/2017 15:40:00 018 17:21:00 DIS Emergency AUDREY VALLADARES [facility] ER R SIDE NECK PAIN [id number] 12/26/2019 09:00:00 P EN Preadmit ROBBY MARTINEZ DO [facility] SDC MENORRHAGIA, ANEMIA, ADHESIO NS [id number] 12/20/2019 10:10:00 Document Registration [id number] 12/20/2019 10:10:00 Document Registration [id number] 12/20/2019 10:10:00 Document Registration [id number] 05/22/2006 12:45:00 Document Registration [id number] 11/30/2019 15:02:00 11/30/2019 23:59 :00 DIS Outpatient Nahomi Tan [id number] 11/30/2019 14:15:00 11/30/2019 23:59 :00 DIS Outpatient Nahomi Tan [id number] 11/17/2019 15:05:00 11/17/2019 16:10 :00 DIS Outpatient Sunni [facility] ER [id number] 11/16/2019 16:14:00 11/16/2019 18:55 :00 DIS Outpatient MARIA E COPE LEE ANN [facility] ER [id number] 10/18/2019 13:15:00 10/18/2019 23:59 :00 DIS Outpatient Mel Willis [id number] 10/11/2019 16:03:00 10/11/2019 23:59 :00 DIS Outpatient DominickNahomi [id number] 10/11/2019 08:54:00 10/11/2019 23:59 :00 DIS Outpatient Dominick, Nahomi [id number] 10/07/2019 18:56:00 10/09/2019 17:50 :00 DIS Outpatient [facility] [id number] 10/01/2019 13:12:00 10/01/2019 23:59 :00 DIS Outpatient DominickNahomi [id number] 09/29/2019 14:38:00 09/30/2019 13:15 :00 DIS Outpatient [facility] [id number] 08/18/2019 11:08:00 08/18/2019 23:59 :00 DIS Outpatient FREEDOM MONTANO [id number] 08/12/2019 16:56:00 08/14/2019 10:05 :00 DIS Outpatient [facility] [id number] 08/12/2019 11:27:00 08/12/2019 13:48 :00 DIS Outpatient JIN GIL [facility] ER [id number] 08/01/2019 14:16:00 08/01/2019 23:59 :00 DIS Outpatient Lazaro, Mel [id number] 08/01/2019 10:59:00 08/01/2019 23:59 :00 DIS Outpatient Dominick, Nahomi [id number] 06/27/2019 14:18:00 06/27/2019 23:59: 00 DIS Outpatient TIM FERGUSON [id number] 05/17/2019 13:24:00 05/17/2019 23:59: 00 DIS Outpatient Nahomi Tan [id number] 05/12/2019 15:22:00 05/12/2019 23:37: 00 DIS Outpatient Sunni [facility] ER [id number] 04/17/2019 00:00:00 04/17/2019 20:40: 00 DIS Outpatient Erik Bajwa [id number] 04/12/2019 13:36:00 04/12/2019 23:59: 00 DIS Outpatient Erik Bajwa [id number] 03/23/2019 18:44:00 03/23/2019 21:35: 00 DIS Outpatient LEE ANN SANDERSON APRN [facility] ER [id number] 03/09/2019 14:35:00 03/09/2019 23:59: 00 DIS Outpatient Dominick Nahomi [id number] 01/25/2019 10:24:00 01/25/2019 23:59: 00 DIS Outpatient CHARMAINE FREEDOM [id number] 01/18/2019 12:06:00 01/18/2019 23:59: 00 DIS Outpatient Leonard Guzman [id number] 01/16/2019 14:04:00 01/16/2019 23:59: 00 DIS Outpatient Nahomi Tna [id number] 01/10/2019 15:59:00 01/10/2019 23:59: 00 DIS Outpatient TIM FERGUSON [id number] 12/04/2018 17:50:00 12/04/2018 19:18: 00 DIS Outpatient WHITNEY ARMSTRONG [facility] ER [id number] 10/20/2018 14:15:00 10/20/2018 23:59: 00 DIS Outpatient Dominick Nahomi [id number] 10/18/2018 10:51:00 10/18/2018 23:59: 00 DIS Outpatient Dominick Nahomi [id number] 10/15/2018 10:43:00 10/15/2018 14:15: 00 DIS Outpatient JIN GIL [id number] 08/30/2018 12:10:00 08/30/2018 23:59: 00 DIS Outpatient DominickNahomi [id number] 08/30/2018 11:26:00 08/30/2018 23:59: 00 DIS Outpatient TIM FERGUSON [id number] 08/28/2018 16:30:00 08/28/2018 18:53: 00 DIS Outpatient Graciela Torres [facility] ER [id number] 03/31/2018 12:14:00 03/31/2018 23:59: 00 DIS Outpatient Nahomi Tan [id number] 01/06/2017 11:48:00 01/06/2017 16:45: 00 DIS Outpatient Mel Willis [facility] ER [id number] 01/03/2017 04:20:00 01/03/2017 08:23: 00 DIS Outpatient DanyelMaureen [place] [facility] [facility] ER [id number] 01/02/2017 18:51:00 01/02/2017 21:46: 00 DIS Outpatient SummitMaureen [facility] ER [id number] 03/31/2018 11:08:00 Document Registration [id number] 02/02/2018 09:43:00 Document Registration [id number] 11/17/2017 15:24:00 Document Registration [id number] 08/20/2017 10:59:00 Document Registration [id number] 05/12/2017 15:04:00 Document Registration [id number] 01/02/2017 19:35:26 Document Registration [id number] 04/17/2019 09:05:00 Document Registration
[2019-12-26] MEDS ORDERED: metroNIDAZOLE 500MG/100ML IVPB 100 ML IV ONE (07:45)
[2019-12-26] MEDS ORDERED: ceFAZolin INJECTION 1,000 MG in WATER (STERILE) FOR INJECTION 10 ML IV ONE (07:45)
[2019-12-26] MEDS: LACTATED RINGERS 1,000 ML IV PRN ×2 (08:05→10:19)
[2019-12-26] MEDS ORDERED: BUP/EPI 0.5% 1:200,000 (SENSORCAINE) 30 ML VIAL ONE (08:10)
[2019-12-26] MEDS ORDERED: fentaNYL INJECTION 100 MCG/2 ML AMP ONE (08:16)
[2019-12-26] MEDS ORDERED: MIDAZOLAM 2 MG/2 ML (VERSED) VIAL ONE (08:18)
--- NOTE | 2019-12-26 08:38 | Progress Note-Pre Operative ---
Pre-Operative Progress Note H&P Reviewed The H&P was reviewed, patient examined and no changes noted. Date Seen by Provider: Dec 26, 2019 Time Seen by Provider: 08:30 Date H&P Reviewed: Dec 26, 2019 Time H&P Reviewed: 08:15 Pre-Operative Diagnosis: menorrhagia, anemia, adhesions, ROBBY MARTINEZ DO Dec 26, 2019 08:38
[2019-12-26] MEDS ORDERED: SEVOFLURANE (ULTANE) 15 ML INHAL SOLN ONE ×8 (10:35→10:44)
[2019-12-26] MEDS ORDERED: DEXAMETHASONE 10 MG/ML (DECADRON) 1 ML VIAL ONE (10:35)
[2019-12-26] MEDS ORDERED: LIDOCAINE PF 2% 5 ML (XYLOCAINE) VIAL ONE (10:35)
[2019-12-26] MEDS ORDERED: ONDANSETRON 4 MG/2 ML (SDV) Z0FRAN ONE (10:35)
[2019-12-26] MEDS ORDERED: proPOfol 200 MG/20 ML (DIPRIVAN) VIAL IV ONE (10:35)
[2019-12-26] MEDS ORDERED: ROCURONIUM 10 MG/ML 5 ML SYRINGE IV ONE (10:35)
[2019-12-26] MEDS ORDERED: diphenhydrAMINE 50 MG/ML INJ (BENADRYL) ONE (10:44)
[2019-12-26] MEDS: KETOROLAC 30 MG/ML VIAL IV SCH ×2 (10:45→17:32)
[2019-12-26] MEDS ORDERED: KETOROLAC 30 MG/ML VIAL ONE (10:55)
--- NOTE | 2019-12-26 10:58 | Operative Report ---
Operative Report Date of Procedure/Surgery Dec 26, 2019 Surgeon (s) ROBBY MARTINEZ DO Divider Operator (s): na Post-Operative Diagnosis ADHESIONSAL DISEASE (OBLITERATED CULDESAC) MENORRHAGIA LEFT OVARIAN CYST BILATERAL HYDROSALPINGES Procedure Performed rAth, BILATERAL SALPINGECTOMY, LEFT OOPHORECTOMY LYSIS OF ADHESIONS Description of Procedure Anesthesia Type: General Estimated blood loss (mL): 50 Specimen(s) collected/removed UTERUS, TUBES, LEFT OVARY Findings of the Procedure UTERUS IS RETROVERTED 6 CM 3.0 CM RIGHT TUBAL LIGATION RIGHT HYDROSALPINX LEFT HYDROSALPINX LEFT ADHEXAL CYST. cOULD NOT APPRECIATE NORMAL OVARIAN TISSUE. LEFT TUBE/OVARY COMPLEX ADHERENT TO SIDE WALL AND ROUND LIGAMENT RIGHT TUBOOVARIAN ADHESIONS AND RIGHT ROUND LIGAMENT ADHESIONS OF BOWEL AND OMENTUM TO RIGHT ABDOMINAL SIDE WALL (APPENDECTOMY SCAR) CULDESZC OBLITERATED, PROBABLE ENDOMETRIOSIS ON RIGHT US LIGAMENT Allergies and Home Medications Allergies Coded Allergies: No Known Drug Allergies (Unverified , 12/20/19) Home Medications Alprazolam 1 Mg Tablet, 1 MG PO DAILY, (Reported) Alprazolam 1 Mg Tablet, 0.5 MG PO BID PRN for ANXIETY, (Reported) Cyanocobalamin 1,000 Mcg/Ml Inj, 1,000 MCG IM MONTHLY, (Reported) Ferrous Sulfate 325 Mg Tablet, 325 MG PO DAILY, (Reported) Fluticasone Propionate 15.8 Ml [place].susp, 15.8 ML NS PRN, (Reported) Folic Acid 0.8 Mg Tablet, 0.8 MG PO DAILY, (Reported) Gabapentin 100 Mg Capsule, 100 MG PO BID, (Reported) Hydrocodone/Acetaminophen 1 Each Tablet, 1 EACH PO Q8H PRN for PAIN-MODERATE (5- 7), (Reported) Levetiracetam 500 Mg Tablet, 500 MG PO BID, (Reported) Lisinopril 2.5 Mg Tablet, 2.5 MG PO DAILY, (Reported) Nortriptyline HCl 75 Mg Capsule, 75 MG PO HS, (Reported) Pantoprazole Sodium 40 Mg Tablet.dr, 40 MG PO HS, (Reported) Promethazine HCl 25 Mg Tablet, 25 MG PO Q6H PRN for NAUSEA/VOMITING, (Reported) Scopolamine 1 Each Patch.td72, 1 EACH TD Q72H PRN for NAUSEA/VOMITING, (Reported) Patient Home Medication List Home Medication List Reviewed: Yes ROBBY MARTINEZ DO Dec 26, 2019 10:58
[2019-12-26] MEDS ORDERED: ALPRAZolam 1 MG (XANAX) TAB PO PRN (11:00)
[2019-12-26] MEDS ORDERED: PROMETHAZINE 25 MG (PHENERGAN) TAB PO PRN (11:00)
[2019-12-26] MEDS ORDERED: LACTATED RINGERS 1,000 ML IV SCH (11:01)
[2019-12-26] MEDS ORDERED: PROMETHAZINE INJ 25 MG/ML (PHENERGAN) AMP IVP ONE (11:15)
[2019-12-26] MEDS ORDERED: morphine INJ 4 MG/ML 1 ML (VIAL/SYRINGE) IVP PRN (11:15)
[2019-12-26] MEDS ORDERED: CHLORASEPTIC LOZENGE MM PRN (11:15)
[2019-12-26] MEDS ORDERED: ONDANSETRON 4 MG/2 ML (SDV) Z0FRAN IVP PRN (11:15)
[2019-12-26] MEDS ORDERED: ONDANSETRON 4 MG (ZOFRAN) ORAL DISSOLVE TAB PO PRN (11:15)
[2019-12-26] MEDS ORDERED: lisINopril 5 MG (PRINIVIL) TABLET PO NR (11:15)
[2019-12-26] MEDS ORDERED: morphine INJ 10 MG/ML 1ML (SYR OR VIAL) IVP ONE (11:15)
--- NOTE | 2019-12-26 12:00 | NUR ---
ANDREA MONROY TRANSFERRED TO ROOM 306 VIA PT BED FROM PACU ACC BY ANGELIQUE NOLAN MANAGER MACHINE AFTER A ROBOTIC ASSISTED LAPAROSCOPIC HYSTERECTOMY, BILATERAL SALPINGETOMY AND LEFT OOPHORECTOMY TODAY BY DR. MARTINEZ. ANDREA MONROY introduced to surroundings, call light, bed controls, phone, TV, temperature control, lights, meal times, smoking policy, visitor policy, side rail policy, bathrooms and showers. Patient Rights given to patient in the handbook.
--- NOTE | 2019-12-26 12:10 | NUR ---
ASSESSMENT COMPLETED. VSS. VERY DROWSY BUT MAINTAINING SPO2 96-100% ON ROOM AIR.
--- NOTE | 2019-12-26 12:15 | NUR ---
IV FLUIDS PLACED ON PUMP. SITE CLEAR.
[2019-12-26] MEDS ORDERED: ALPRAZolam 0.5 MG (XANAX) TAB PO PRN (12:45)
--- NOTE | 2019-12-26 13:30 | NUR ---
DOZING AT INTERVALS. GOOD URINE OUTPUT. FREQUENT VS MONITORING.
[2019-12-26] MEDS ORDERED: ACETAMINOPHEN 500 MG TAB (TYLENOL) PO SCH (14:00)
--- NOTE | 2019-12-26 14:52 | NUR ---
OXYIR 5 MG P.O. FOR C/O ABD PAIN/PRESSURE. SPOUSE HERE. SPOUSE PLANS TO GO HOME AND WAIT TO SEE IF PT GETS TO GO HOME.
--- NOTE | 2019-12-26 15:45 | NUR ---
AMBULATED IN [place] WITH STANDBY ASSIST. MOVES WELL. WANTING TO GO HOME TONIGHT. BACK TO BED.
--- NOTE | 2019-12-26 16:00 | NUR ---
DR. MARTINEZ NOTIFIED OF PT WANTING TO GO HOME THIS EVENING IF ABLE TO VOID.
[2019-12-26] MEDS ORDERED: IBUP-844 PO (16:19)
[2019-12-26] MEDS ORDERED: ACET-93 PO (16:19)
[2019-12-26] MEDS ORDERED: OXYC5TAB96 PO (16:19)
--- NOTE | 2019-12-26 16:22 | Discharge Inst-Women's Service ---
Discharge Inst-Women's Serv Depart Medication/Instructions New, Converted or Re-Newed RX: RX on Chart Instructions nothing in the vagina for 10-12 weeks no lifting over 25 lbs no driving for 1 weeks Final Diagnosis menorrhagia left ovarian cyst, bilateral hydrosalpinx enteropelvic adhesions endometriosis anemia Problems Reviewed?: Yes Consults/Follow Up Additional Follow Up: Yes (1-2 weeks with Zaida/Jorge for post operative incision check; 10-12 weeks with Jorge) Activity Activity: Activity as Tolerated Driving Instructions: No Driving for 1 Week NO SMOKING: NO SMOKING Nothing Inside Vagina: No Douching, No Ramos, No Tampons Diet Discharge Diet: No Restrictions Symptoms to Report to : Bleeding Excessive, Pain Increased, Fever Over 101 Degrees F, Vaginal Bleeding Increase, Cramps in Feet or Legs, Vaginal Discharge Foul For Any Problems or Questions: Contact Your Physician Skin/Wound Care Infection Signs and Symptoms: Increased Redness, Foul Odor of Wound, Increased Drainage, Skin Itchy or Has a Rash, Increased Swelling, Temperature Above 101 F Operative Area Clean and Dry: You May Remove Bandage (remove in 3 days; or if soiled or wet) Stitches/[place]/Dermabond: Dermabond Bathing Instructions: ROBBY Mendes DO Dec 26, 2019 16:22
--- NOTE | 2019-12-26 17:30 | NUR ---
DR. MARTINEZ HERE TO SEE PT.
--- NOTE | 2019-12-26 18:00 | NUR ---
DISCHARGE INSTRUCTIONS REVIEWED WITH COPY TO PT. STATES UNDERSTANDING OF ALL INSTRUCTIONS AND NEED TO F/U SCHEDULED AND NEEDED.
--- NOTE | 2019-12-26 18:05 | NUR ---
DISMISSED FROM [facility] VIA W/C TO FAMILY CAR IN STABLE CONDITION ACC BY JULIET CULP RN. SPOUSE WAITING AT DOORS.
[2019-12-26] MEDS ORDERED: NORTRIPTYLINE HCL 75 MG PO SCH (21:00)
[2019-12-26] MEDS ORDERED: PANTOPRAZOLE 40 MG (PROTONIX) TAB PO SCH (21:00)
[2019-12-26] MEDS ORDERED: NORTRIPTYLINE 25 MG (PAMELOR) CAP PO SCH (21:00)
[2019-12-26] MEDS ORDERED: LEVETIRACETAM 500 MG (KEPPRA) TAB PO SCH (21:00)
[2019-12-26] MEDS ORDERED: GABAPENTIN 100 MG (NEURONTIN) CAP PO SCH (21:00)
[2019-12-26] MEDS ORDERED: traZODone 50 MG (DESYREL) TAB PO SCH (21:00)
--- NOTE | 2019-12-27 08:19 | Anesthesia-General Post-Op ---
General Post Op Complications Complications None Follow Up Care/Instructions Patient Instructions None needed. Anesthesia/Patient Condition Patient Condition Patient discharged to home, no apparent adverse anesthesia problems. PAMELA,XUAN Jones CRNA Dec 27, 2019 08:19
[2019-12-27] MEDS ORDERED: lisINopril 5 MG (PRINIVIL) TABLET PO SCH (09:00)
[2019-12-27] MEDS ORDERED: NON-FORMULARY MEDICATION 1 EA EA (Lisinopril 2.5 MG) PO SCH (09:00)
[2019-12-27] MEDS ORDERED: IBUPROFEN 600 MG (MOTRIN) TAB PO SCH (11:15)
== END 2019-12-26 18:05 | disposition home or self-care (01) ==
LOC: SDC 07:30 → LDRP 12:00 → WS 15:11 → SDC 18:05
PROVIDERS: ATTEND Obstetrics & Gynecology
DX: N80.0 Endometriosis of uterus (principal); N88.8 Other specified noninflammatory disorders of cervix uteri; N70.11 Chronic salpingitis; N73.6 Female pelvic peritoneal adhesions (postinfective); N83.12 Corpus luteum cyst of left ovary; D64.9 Anemia, unspecified; Z79.51 Long term (current) use of inhaled steroids; Z91.048 Other nonmedicinal substance allergy status; Z79.891 Long term (current) use of opiate analgesic; Z79.899 Other long term (current) drug therapy; I10 Essential (primary) hypertension; Z87.891 Personal history of nicotine dependence; F32.9 Major depressive disorder, single episode, unspecified; R11.15 Cyclical vomiting syndrome unrelated to migraine; N92.0 Excessive and frequent menstruation with regular cycle
CPT/HCPCS: 84703; 86850; 86900; 86901; 88304; 94664